=== PATIENT | female | born 1965 ===

== ENCOUNTER 2019-01-30 11:18 | Outpatient (REF) | payer MEDICARE, MEDICAID, SELFPAY ==
[2019-01-30 21:10] LABS: Cholesterol 244 mg/dL (50-200); Glucose 91 mg/dL (70-100); HDL Cholesterol 67 mg/dL (40-60); LDL CHOLESTEROL 159 mg/dL (<100); Triglyceride 55 mg/dL (30-150)
== END 2019-01-30 11:38 ==
LOC: NCHCN 11:18
PROVIDERS: PCP Internal Medicine; Visit Provider Internal Medicine
DX: E78.89 Other lipoprotein metabolism disorders (principal); Z13.1 Encounter for screening for diabetes mellitus
CPT/HCPCS: 80061; 82947; 83721

== ENCOUNTER 2019-03-14 07:45 | Outpatient (REF) | payer MEDICARE, MEDICAID, SELFPAY ==
[2019-03-13 21:12] LABS: Anion Gap 7.6 mmol/L (3-11); BUN 18 mg/dL (7-18); CO2 31.4 mmol/L (21.0-32.0); CREATININE 0.85 mg/dL (0.55-1.02); Calcium 9.9 mg/dL (8.5-10.1); Chloride 103 mmol/L (98-107); Glucose 90 mg/dL (70-100); Potassium 4.3 mmol/L (3.5-5.1); Sodium 142 mmol/L (136-145)
== END 2019-03-14 08:05 ==
LOC: NCHCN 07:45
PROVIDERS: PCP Internal Medicine; Visit Provider Internal Medicine
DX: R60.0 Localized edema (principal)
CPT/HCPCS: 80048

== ENCOUNTER 2019-06-08 16:15 | Outpatient (REF) | payer MEDICARE, MEDICAID, SELFPAY ==
[2019-06-08 22:29] LABS: Uric Acid 5.3 mg/dL (2.6-6.0)
== END 2019-06-08 16:35 ==
LOC: NCHCN 16:15
PROVIDERS: PCP Internal Medicine; Visit Provider Internal Medicine
DX: M25.562 Pain in left knee (principal)
CPT/HCPCS: 84550

== ENCOUNTER 2020-03-11 17:46 | Outpatient (REF) | payer MEDICARE, MEDICAID, SELFPAY ==
[2020-03-11 21:17] LABS: Calculated LDL 112 mg/dL (<100); Cholesterol 171 mg/dL (<200); HDL Cholesterol 40 mg/dL (40-60); Triglyceride 97 mg/dL (<150)
== END 2020-03-11 18:06 ==
LOC: NCHCN 17:46
PROVIDERS: PCP Internal Medicine; Visit Provider Internal Medicine
DX: E78.5 Hyperlipidemia, unspecified (principal)
CPT/HCPCS: 80061

== ENCOUNTER 2024-02-03 17:16 | Outpatient (REF) | payer MEDICARE, MEDICAID, SELFPAY ==
[2024-02-03 21:48] LABS: BUN 14 mg/dL (7-18); Calculated LDL 82 mg/dL (<100); Chloride 107 mmol/L (98-107); Cholesterol 156 mg/dL (<200); Estimated GFR 64.49 (mL/min/1.73m2); Glucose 94 mg/dL (74-106); HDL Cholesterol 42 mg/dL (40-60); Potassium 3.8 mmol/L (3.5-5.1); Sodium 143 mmol/L (136-145); Triglyceride 161 mg/dL (<150)
== END 2024-02-03 17:17 | disposition home or self-care (01) ==
LOC: NCHCN 17:16
PROVIDERS: PCP Internal Medicine; Visit Provider Family Medicine
DX: E78.5 Hyperlipidemia, unspecified (principal)
CPT/HCPCS: 80048; 80061